=== PATIENT | female | born 1955 | race Caucasian/White ===

== ENCOUNTER → 2017-09-17 | Day surgery (SDC) | payer OTHER ==
[2017-09-13 08:23] VITALS: Ht 162.6 cm; Wt 79.5 kg
[~2017-09-17] VITALS: Ht 162.6 cm; Wt 79.5 kg
[~2017-09-17] MED LIST: MULT-506 PO; OMEG10007 PO; OMEP20CA9 PO; RANI150T3 PO
== END | disposition home or self-care (01) ==
LOC: EDSTATUS 13:31 → C.PAT 13:32
PROVIDERS: ATTEND Physical Medicine & Rehabilitation
DX: M46.1 Sacroiliitis, not elsewhere classified (principal); Z53.8 Procedure and treatment not carried out for other reasons